=== PATIENT | male | born 1950 | race Caucasian/White ===

== ENCOUNTER → 2016-12-30 | Outpatient (CLI) | payer OTHER | LOC: US 09:30 | DX: Z13.6 Encounter for screening for cardiovascular disorders (principal); F03.90 Unspecified dementia, unspecified severity, without behavioral disturbance, psychotic disturbance, mood disturbance, and anxiety; R41.3 Other amnesia; G31.9 Degenerative disease of nervous system, unspecified; R90.89 Other abnormal findings on diagnostic imaging of central nervous system; Z87.891 Personal history of nicotine dependence | CPT/HCPCS: 70553; 76706; A9577 ==

== ENCOUNTER → 2020-08-14 | Outpatient (CLI) | payer OTHER ==
[~2020-08-14] MED LIST: ATORVASTATIN CA10 MG PO; CENTURY ULTIMA1 EAC1 PO; ELIQUIS 5 MG TAB5 MG PO; ESCITALOPRAM OX10 MG PO; EXELON1 EAC1 TD; FISH OIL 1,2001 EACH PO; GLUCOPHAGE 500500 MG PO; LO-DOSE ASPIRIN81 MG PO; MULTAQ400 MG PO; OMNICEF 300 MG300 MG PO; RAMIPRIL10 MG PO; SPIRIVA18 MCG INH; VENTOLIN HFA 66.7 GM INH; ZYLOPRIM 300 M300 MG PO
== END ==
LOC: KOH-I 14:30
DX: J20.9 Acute bronchitis, unspecified (principal); R91.8 Other nonspecific abnormal finding of lung field
CPT/HCPCS: 71046

== ENCOUNTER → 2020-08-31 | Outpatient (CLI) | payer OTHER | LOC: HEART 5 11:45 | DX: Z09 Encounter for follow-up examination after completed treatment for conditions other than malignant neoplasm (principal); Z87.09 Personal history of other diseases of the respiratory system; R94.2 Abnormal results of pulmonary function studies | CPT/HCPCS: 94010 ==

== ENCOUNTER 2020-10-12 13:43 | Inpatient (IN) | payer OTHER ==
[~2020-10-12] VITALS: Ht 195.6 cm; Wt 94.1 kg
[2020-10-12] MEDS ORDERED: ATORVASTATIN CA10 MG PO (16:52)
[2020-10-12] MEDS ORDERED: GLUCOPHAGE 500500 MG PO (16:53)
[2020-10-12] MEDS ORDERED: VENTOLIN HFA 66.7 GM INH (17:02)
[2020-10-12] MEDS ORDERED: RAMIPRIL10 MG PO (17:03)
[2020-10-12] MEDS ORDERED: ZYLOPRIM 300 M300 MG PO (17:03)
[2020-10-12] MEDS ORDERED: EXELON1 EAC1 TD (17:04)
[2020-10-12] MEDS ORDERED: ESCITALOPRAM OX10 MG PO (17:04)
[2020-10-12] MEDS ORDERED: SPIRIVA18 MCG INH (17:05)
[2020-10-12] MEDS ORDERED: LO-DOSE ASPIRIN81 MG PO (17:06)
[2020-10-12] MEDS ORDERED: FISH OIL 1,2001 EACH PO (17:06)
[2020-10-12] MEDS ORDERED: CENTURY ULTIMA1 EAC1 PO (17:10)
[2020-10-12 17:22] LABS: HEMOGLOBIN 13.7 gm/dl (14.0-17.5); RED BLOOD COUNT 4.4 M/UL (4.20-5.50); WHITE BLOOD COUNT 10.3 K/UL (4.5-11.0)
[2020-10-13 04:41] LABS: HEMOGLOBIN 12.3 gm/dl (14.0-17.5); RED BLOOD COUNT 4.02 M/UL (4.20-5.50)
[2020-10-13 04:43] LABS: WHITE BLOOD COUNT 7.5 K/UL (4.5-11.0)
[2020-10-14 04:31] LABS: HEMOGLOBIN 12.7 gm/dl (14.0-17.5); RED BLOOD COUNT 4.16 M/UL (4.20-5.50); WHITE BLOOD COUNT 8.1 K/UL (4.5-11.0)
[2020-10-14 04:57] LABS: BUN/CREATININE RATIO 24 (0-10)
[2020-10-15 04:00] LABS: HEMOGLOBIN 12.6 gm/dl (14.0-17.5); RED BLOOD COUNT 4.14 M/UL (4.20-5.50); WHITE BLOOD COUNT 8.7 K/UL (4.5-11.0)
[2020-10-15 04:41] LABS: BUN/CREATININE RATIO 21 (0-10)
[2020-10-15] MEDS ORDERED: OMNICEF 300 MG300 MG PO (10:03)
[2020-10-15] MEDS ORDERED: ELIQUIS 5 MG TAB5 MG PO (10:03)
[2020-10-15] MEDS ORDERED: MULTAQ400 MG PO (10:03)
== END 2020-10-15 14:01 | disposition home or self-care (01) | DRG 291 ==
LOC: PROG CARE 13:43
PROVIDERS: ADMIT Internal Medicine
PROC: B24BZZZ Ultrasonography of Heart with Aorta (ICD-10-PCS; principal; 2020-10-13)
DX: I11.0 Hypertensive heart disease with heart failure (principal); J18.9 Pneumonia, unspecified organism; J96.01 Acute respiratory failure with hypoxia; J44.0 Chronic obstructive pulmonary disease with (acute) lower respiratory infection; I48.91 Unspecified atrial fibrillation; I50.33 Acute on chronic diastolic (congestive) heart failure; Z20.822 Contact with and (suspected) exposure to COVID-19; F01.50 Vascular dementia, unspecified severity, without behavioral disturbance, psychotic disturbance, mood disturbance, and anxiety; E11.9 Type 2 diabetes mellitus without complications; N40.0 Benign prostatic hyperplasia without lower urinary tract symptoms; R19.7 Diarrhea, unspecified; E87.6 Hypokalemia; E78.5 Hyperlipidemia, unspecified; M10.9 Gout, unspecified; Z80.8 Family history of malignant neoplasm of other organs or systems; Z82.5 Family history of asthma and other chronic lower respiratory diseases; Z85.038 Personal history of other malignant neoplasm of large intestine; Z87.891 Personal history of nicotine dependence; Z79.84 Long term (current) use of oral hypoglycemic drugs; Z79.82 Long term (current) use of aspirin; Z79.899 Other long term (current) drug therapy; Z99.81 Dependence on supplemental oxygen
CPT/HCPCS: ECHO; 36415; 36600; 71045; 80048; 80053; 80061; 82550; 82553; 82803; 82962; 83036; 83735; 84132; 84439; 84443; 84484; 85025; 85027; 93005; 93306; 94640; 94664; 94760; 97161; J0456; J0696; J1940; J7030; U0002

== ENCOUNTER → 2021-02-16 | Outpatient (CLI) | payer OTHER | LOC: KOH-I 09:06 | DX: Z87.891 Personal history of nicotine dependence (principal); R91.8 Other nonspecific abnormal finding of lung field | CPT/HCPCS: 71271 ==

== ENCOUNTER 2021-04-07 11:30 | Emergency (ER) | payer OTHER ==
[~2021-04-07] VITALS: Ht 195.6 cm; Wt 102.1 kg
== END 2021-04-07 15:30 | disposition home or self-care (01) ==
LOC: ER1 11:30
DX: Z23 Encounter for immunization (principal); U07.1 COVID-19; J44.9 Chronic obstructive pulmonary disease, unspecified; I10 Essential (primary) hypertension; Z87.891 Personal history of nicotine dependence
CPT/HCPCS: 99284; M0243